=== PATIENT | male | born 1990 | race Two or more races ===

== ENCOUNTER 2025-09-03 13:25 | Emergency (ER) | payer OTHER ==
[2025-09-03 13:34] VITALS: BP 126/74; PULSE 70; RESP 16; TEMP 98.6; BMI 29.0
[2025-09-03 14:41] LABS: URINE APPEARANCE CLEAR; URINE BILIRUBIN NEGATIVE (NEGATIVE); URINE COLOR YELLOW; URINE GLUCOSE (UA) NEGATIVE (NEGATIVE); URINE KETONE NEGATIVE (NEGATIVE); URINE LEUK ESTERASE NEGATIVE (NEGATIVE); URINE NITRITE NEGATIVE (NEGATIVE); URINE PROTEIN NEGATIVE (NEGATIVE); URINE UROBILINOGEN 0.2 mg/dL (0.2-1.0)
== END 2025-09-03 15:24 | disposition home or self-care (01) ==
LOC: JERFT 13:25
DX: A56.8 Sexually transmitted chlamydial infection of other sites (principal)
CPT/HCPCS: 36415; 81003; 87086; 87491; 87591; 87661; 99284-25